=== PATIENT | female | born 1995 | race Caucasian/White ===

== ENCOUNTER 2019-08-14 16:58 | Outpatient (CLI) | payer MEDICAID ==
[2019-08-14] MEDS ORDERED: MACROBID100 MG PO (17:26)
[2019-08-14] MEDS ORDERED: PRENAVITE1 TAB PO (17:26)
[2019-08-14] MEDS ORDERED: FERROUS SULFAT325 MG PO (17:27)
[2019-08-14 17:30] LABS: BASOPHILS 0.1 % (0-2); EOSINOPHILS 0.2 % (0-7); HEMATOCRIT 23.8 % (36.0-48.0); IMMATURE GRANULOCYTES 0.4 % (0-5); LYMPHOCYTES 7.6 % (15-50); MCHC 29.4 g/dL (31.0-37.0); MONOCYTES 4.2 % (2-11); NEUTROPHILS 87.5 % (40-80); PLATELET COUNT 189 10x3/uL (130-400); RBC 3.66 10x6/uL (4.00-5.40); RDW 18.7 % (11.5-14.5); WBC 13.2 10x3/uL (4.8-10.8)
[2019-08-14 17:38] LABS: MCH 19.1 pg (26.0-34.0)
[2019-08-14 17:43] LABS: ALBUMIN 2.4 g/dL (3.4-5.0); ALKALINE PHOSPHATASE 110 U/L (46-116); ALT (SGPT) 13 U/L (10-68); BILIRUBIN - DIRECT 0.17 mg/dL (0.00-0.30); BILIRUBIN - INDIRECT 0.35 mg/dL (0.00-1.00); BILIRUBIN - TOTAL 0.52 mg/dL (0.2-1.3); CALC OSMOLALITY 267 mosm/kg (275-300); CALCIUM 8.2 mg/dL (8.5-10.1); CARBON DIOXIDE 21.3 mmol/L (21.0-32.0); CHLORIDE - SERUM 102 mmol/L (98-107); CREATININE - SERUM 0.4 mg/dL (0.6-1.3); GLUCOSE 87 mg/dL (74-106); POTASSIUM - SERUM 3.7 mmol/L (3.5-5.1); PROTEIN - SERUM 6.6 g/dL (6.4-8.2); SODIUM 136 mmol/L (136-145); UREA NITROGEN 5 mg/dL (7-18); URIC ACID 2.9 mg/dL (2.6-7.2); eGFR NON AFRICAN AMERICAN > 90 mL/min (90-120)
[2019-08-14 17:45] LABS: APPEARANCE CLEAR (CLEAR); BILIRUBIN NEGATIVE (NEGATIVE); COLOR YELLOW (YELLOW); GLUCOSE NEGATIVE (NEGATIVE); KETONE NEGATIVE (NEGATIVE); NITRITE NEGATIVE (NEGATIVE); PROTEIN NEGATIVE (NEGATIVE); UROBILINOGEN NORMAL (NORMAL)
[2019-08-14 17:46] LABS: EPITHELIAL CELLS 0-5 /hpf (0-5); RED CELLS - URINE 0-5 /hpf (0-5)
[2019-08-14 17:47] LABS: BACTERIA MODERATE /hpf (NEGATIVE); YEAST >1+ WITH HYPHAE /hpf (NONE SEEN)
[2019-08-15 06:59] LABS: BASOPHILS 0.2 % (0-2); EOSINOPHILS 1.2 % (0-7); HEMATOCRIT 28.2 % (36.0-48.0); IMMATURE GRANULOCYTES 0.6 % (0-5); LYMPHOCYTES 23.9 % (15-50); MCH 21.1 pg (26.0-34.0); MCHC 30.5 g/dL (31.0-37.0); MONOCYTES 8.5 % (2-11); NEUTROPHILS 65.6 % (40-80); PLATELET COUNT 184 10x3/uL (130-400); RBC 4.07 10x6/uL (4.00-5.40); RDW 21.8 % (11.5-14.5); WBC 10.1 10x3/uL (4.8-10.8)
[2019-08-15 07:01] LABS: HEMOGLOBIN 8.6 g/dL (12-16); MCV 69.3 fL (80.0-100.0)
== END 2019-08-15 08:30 | disposition home or self-care (01) ==
LOC: D.LDO 16:58 → D.LD 18:41 → D.LDO 08-15 08:30
PROVIDERS: Obstetrics & Gynecology; ATTEND Student in an Organized Health Care Education/Training Program
DX: O26.893 Other specified pregnancy related conditions, third trimester (principal); Z3A.34 34 weeks gestation of pregnancy

== ENCOUNTER → 2019-08-23 12:21 | Outpatient (CLI) | payer MEDICAID ==
[~2019-08-23 12:21] MED LIST: FERROUS SULFAT325 MG PO; MACROBID100 MG PO; PRENAVITE1 TAB PO
== END | disposition home or self-care (01) ==
LOC: D.LDO 12:21
PROVIDERS: ATTEND Student in an Organized Health Care Education/Training Program
DX: O26.90 Pregnancy related conditions, unspecified, unspecified trimester (principal)

== ENCOUNTER 2019-09-12 23:48 | Inpatient (IN) | payer MEDICAID ==
[~2019-09-12] VITALS: Ht 139.7 cm; Wt 70.3 kg
[2019-09-13 00:26] LABS: HEMATOCRIT 36.9 % (36.0-48.0); HEMOGLOBIN 11.3 g/dL (12-16); MCH 25.3 pg (26.0-34.0); MCHC 30.6 g/dL (31.0-37.0); MCV 82.7 fL (80.0-100.0); PLATELET COUNT 171 10x3/uL (130-400); RBC 4.46 10x6/uL (4.00-5.40); WBC 9.2 10x3/uL (4.8-10.8)
[2019-09-13] MEDS ORDERED: KEFLEX250 MG PO (01:35)
[2019-09-13 01:36] VITALS: BP 137/76; Ht 139.7 cm; Wt 70.3 kg
[2019-09-13 01:45] LABS: APPEARANCE CLOUDY (CLEAR); BILIRUBIN NEGATIVE (NEGATIVE); COLOR YELLOW (YELLOW); GLUCOSE NEGATIVE (NEGATIVE); KETONE SMALL mg/dL (NEGATIVE); NITRITE NEGATIVE (NEGATIVE); PROTEIN 2+ mg/dL (NEGATIVE); SPECIFIC GRAVITY 1.015 (1.005-1.020); UROBILINOGEN NORMAL (NORMAL)
[2019-09-13 01:47] LABS: BACTERIA MANY /hpf (NEGATIVE); EPITHELIAL CELLS 0-5 /hpf (0-5); RED CELLS - URINE 0-5 /hpf (0-5); WHITE CELLS - URINE 25-50 /hpf (NEGATIVE)
--- NOTE | 2019-09-13 03:43 | NUR ---
SANDWICH TRAY SERVED TO PT. SITTING UP IN BED.
--- NOTE | 2019-09-13 04:14 | NUR ---
ROCEPHINE INFUSION COMPLETED AND LINE FLUSHED WITH NORMAL SALINE. FUNDUS FIRM U/2 AND MIDLINE. LOCHIA RUBRA SCANT. PT. LOOKING ON PHONE. STATES SHE IS NOT SLEEPY.
--- NOTE | 2019-09-13 04:19 | NUR ---
LYING ON LT SIDE AND SUPPORTED WITH PILLOW.
--- NOTE | 2019-09-13 05:53 | NUR ---
SITTING CROSS LEGGED IN BED HOLDING INFANT. INFORMED THAT NBN NURSE WAS ON HER WAY TO HELP HER WITH . PT. STATES UNDERSTANDING.
--- NOTE | 2019-09-13 06:21 | NUR ---
HAS INFANT LYING ON BED AND SHE AND FOB LOOKING AT . INFANT ASLEEP AT PRESENT.
--- NOTE | 2019-09-13 07:30 | NUR ---
PT RESTING WITH EYES CLOSED AND RESP EVEN, NO DISTRESS NOTED.
--- NOTE | 2019-09-13 09:30 | NUR ---
ASSESSMENT COMPLETED CHARTED. FUNDUS FIRM AT U/1, MIDLINE WITH LIGHT BLEEDING, NO CLOTS WITH MASSAGE. IV SALINE LOCKED TO LEFT WRIST AREA, NO REDDNESS, SWELLING OR COMPLAINT OF TENDERNESS. RATES PAIN AT 3/10 AND UNDERSTANDING PAIN MED IS AVAILABLE IF NEEDED. SIDE RAILS UP X 2 WITH CALL LIGHT IN REACH AND SIG OTHER PRESENT.
[2019-09-13 10:00] VITALS: BP 135/89
--- NOTE | 2019-09-13 10:12 | NUR ---
DILEEP GIVEN SCANNED TO EMAR PT RATES CRAMPING AT 5/10. ALSO PROVIDED HER WITH REQUESTED SELF CATH AND CLEANING CLOTHS. PT WILL CALL IF ASSISTANCE IS NEEDED.
--- NOTE | 2019-09-13 10:45 | NUR ---
CALLED TO ROOM, PT STATES THAT SHE NEEDS ASSISTANCE WITH CATH DUE TO DISCOMFORT POST DELIVERY. THIS RN AND VESNA RN TO BEDSIDE. PT POSITIONED TO HER BACK WITH HEAD OF BED LOWERED, FOOT OF BED LOWERED AND PT MOVED TO EDGE. AREA CLEANED PER PROTOCOL, FEMALE SELF CATH WHICH IS LATEX FREE IS USED, IMMEDIATE RETURN OF CLOUDY CONCENTRATED URINE, TOTAL OF 300ML. ANTONY CARE PER NURSE WITH PAD AND MESH BRIEFS PUT ON AND GOWN CHANGED. BEDDING ALSO CHANGED AT THIS TIME. PT RATES PAIN AT 2/10, INFANT IN CRIB AT BEDSIDE WITH SIG OTHER PRESENT.
[2019-09-13 10:58] LABS: BASOPHILS 0.1 % (0-2); EOSINOPHILS 0.5 % (0-7); HEMATOCRIT 34.4 % (36.0-48.0); HEMOGLOBIN 10.8 g/dL (12-16); IMMATURE GRANULOCYTES 0.3 % (0-5); LYMPHOCYTES 17.9 % (15-50); MCH 26.2 pg (26.0-34.0); MCHC 31.4 g/dL (31.0-37.0); MCV 83.5 fL (80.0-100.0); MONOCYTES 7.7 % (2-11); NEUTROPHILS 73.5 % (40-80); PLATELET COUNT 137 10x3/uL (130-400); RBC 4.12 10x6/uL (4.00-5.40)
[2019-09-13 11:45] LABS: WBC 11.8 10x3/uL (4.8-10.8)
--- NOTE | 2019-09-13 12:30 | NUR ---
PT RESTING WITH INFANT IN CRIB AT BEDSIDE. DENIES PAIN OR DISCOMFORT AND HAS NO NEEDS AT THIS TIME.
--- NOTE | 2019-09-13 13:45 | NUR ---
TRANSFERRED TO ROOM 1273. ORIENT TO ROOM WITHOUT QUESTIONS. LARGE CUP OF ICE WITH LEMON UGASHIK SODA REQEUSTED. DENIES PAIN OR DISCOMFORT AT THIS TIME.
--- NOTE | 2019-09-13 14:18 | NUR ---
IN AND OUT CATH PER PT REQUEST, 250ML DARK CONCENTRATED URINE NOTED. ANTONY CARE PER RN WITH PAD AND MESH BRIEFS CHANGED. PINK UNDERPAD AND CHUX CHANGED AT THIS TIME ALSO. RATES PAIN AT 2/10 BUT DENIES NEED FOR MEDS. CALL LIGHT IN REACH, SIDE RAILS UP X 2. FAMILY AT BEDSIDE WITH INFANT.
--- NOTE | 2019-09-13 15:15 | NUR ---
SALINE LOCKED FLUSHED EASILY WITH 5ML NS. ROCEPHIN 1 GRAM INFUSING PER ORDERS.
[2019-09-13 16:13] VITALS: BP 127/71
--- NOTE | 2019-09-13 16:45 | NUR ---
IVPB COMPLETED. IV FLUSHED EASILY WITH 10ML NS AND SALINE LOCKED. PT DENIES PAIN OR DISCOMFORT AND HAS NO NEEDS AT THIS TIME. CALL LIGHT IN REACH.
--- NOTE | 2019-09-13 18:00 | NUR ---
DIETARY MESSAGE THRU [facility] PER PT REQUEST FOR ROOT BEER. CONTINUE TO DENY PAIN. IN CRIB AT BEDSIDE AND FAMILY/FRIENDS ALSO PRESENT. CALL LIGHT IN REACH.
--- NOTE | 2019-09-13 19:16 | NUR ---
PT. SITTING UP IN BED LYING OVER PILLOW ASLEEP. RESPIRATIONS UNLABORED. INFANT IN OPEN CRIB AT BEDSIDE. FOB LYING ON SOFA WITH LIGHTS DIMMED LOOKING AT PHONE AND WATCHING TV. INFORMED FOB THAT THIS NURSE WOULD RETURN AT A LATER TIME TO GET ASSESSMENT AFTER PT. AWAKENS.
--- NOTE | 2019-09-13 20:05 | NUR ---
IN SHOWER AT PRESENT. FOB IN ROOM WITH INFANT. INFANT IN OPEN CRIB.
[2019-09-13 20:24] VITALS: BP 145/88
--- NOTE | 2019-09-13 20:24 | NUR ---
PT. OUT OF SHOWER AND BACK TO BED. SITTING STRAIGHT UP IN BED. DENIES ANY PAIN AT THIS TIME. STATES SHE HAS MILD CRAMPING WITH . BREATH SOUNDS CLEAR AND BOWEL SOUNDS AUDIBLE. PT. REPORTS RECENT BOWEL MOVEMENT. PULSE IRREGULAR. DENIES ANY PAIN IN LOWER EXTREMITIES. PT. DESIRING IV DISCONTINUED. STATES ARM SLIGHTLY SORE AT IV SITE. NO REDNESS NOR EDEMA NOTED. INFORMED PT. THAT IV WOULD MORE THAN LIKELY NEED TO BE RESTARTED IF IT WERE DISCONTINUED. STATES IT REALLY ISN'T THAT PAINFUL AND PREFERS NOT TO HAVE TO RESTART. INFORMED PT. THAT DAYSHIFT STATED THAT IV ASPIRATED WITH GOOD BLOOD RETURN AND ALSO FLUSHED WITH EASE. INFORMED NEXT ANTIBIOTIC TIME WOULD BE AROUND 3:30 SO WOULD CHECK AGAIN AT THAT TIME. STATES UNDERSTANDING. DISCUSSED WITH PT. CONTINUING VITAMINS DIRECTED. INFORMED OF SITUATIONS THAT WOULD NEED TO BE REPORTED SUCH TEMP. ELEVATED GREATER THAN 100.5 AND VAGINAL BLEEDING WHERE SHE WAS SOAKING A PAD, NOT PANTY LINER, EVERY 30 MINUTES. STATES UNDERSTANDING TO ALL.FUNDUS FIRM AND MIDLINE AT U/2.
[2019-09-13 22:30] VITALS: BP 119/79
--- NOTE | 2019-09-13 22:30 | NUR ---
LYING ON BACK WITH LYING ON PT'S CHEST. LIGHTS DIMMED. FOB ASLEEP ON SOFA. TV PLAYING. DENIES ANY NEEDS.
--- NOTE | 2019-09-13 23:55 | NUR ---
PT.TURNED TOWARD IN OPEN CRIB ASLEEP. RESPIRATIONS UNLABORED. LIGHTS IN ROOM DIMMED. FOB SLEEPING ON SOFA.
--- NOTE | 2019-09-14 01:19 | NUR ---
LYING ON BACK WITH EYES CLOSED. RESPIRATIONS UNLABORED. INFANT IN OPEN CRIB AT BEDSIDE. FOB ASLEEP ON SOFA.
--- NOTE | 2019-09-14 02:25 | NUR ---
INFANT LYING ON PILLOW IN BED. PT. LEANING OVER PILLOW . ASKED PT. IF SHE HAD FED AND SHE REPLIED THAT SHE HAD. ASKED IF SHE DESIRED TO GO TO N SO SHE COULD SLEEP. PT. STATES "NO HE IS FINE." SIDE RAILS UP X 2 AND CALL LIGHT WITHIN REACH.
--- NOTE | 2019-09-14 03:00 | NUR ---
IV SITE IN LT FOREARM WITH BULGE NOTED OVER IV SITE. PT. STATES SITE IS MORE PAINFUL. ATTEMPTED TO ASPIRATE SALINE LOCK WITHOUT BLOOD RETURN. IV SALINE LOCK DISCONTINUED WITH INTACT CATH. TIP NOTED. PT. STATES THAT SHE PREFERS NOT TO HAVE IV RESTARTED AND STATES THAT DR. ELLIS TOLD HER THAT SHE WOULD BE SENT HOME WITH ORAL ANTIBIOTICS SO MAYBE SHE COULD START THOSE EARLY. INFORMED PT. THAT MD WOULD HAVE TO BE NOTIFIED OF HER REQUEST. CURRENTLY HOLDING INFANT, WHICH IS SLEEPING , ON HER CHEST.
--- NOTE | 2019-09-14 03:13 | NUR ---
DR. NIKOLAS BRAN.
--- NOTE | 2019-09-14 03:18 | NUR ---
DR. CONNOR CALLED UNIT AND INFORMED THAT PT. DOES NOT WANT IV RESTARTED AND REQUESTED TO START ORAL MEDS. INFORMED MD OF PT. ALLERGIES AND FACT CULTURE IS PENDING IN LAB OF URINE. MD STATES HE WILL CALL THIS NURSE BACK.
--- NOTE | 2019-09-14 03:55 | NUR ---
FITNESS ASSISTANT INFORMED OF NEED FOR ANTIBIOTIC FOR PT.
--- NOTE | 2019-09-14 04:41 | NUR ---
CONTINUES TO HOLD INFANT. WATCHING TV. ANTIBIOTIC GIVEN ORDERED. ICE WATER PROVIDED TO PT.
[2019-09-14 06:05] LABS: BASOPHILS 0.2 % (0-2); EOSINOPHILS 1.2 % (0-7); HEMATOCRIT 34.1 % (36.0-48.0); HEMOGLOBIN 10.3 g/dL (12-16); IMMATURE GRANULOCYTES 0.3 % (0-5); LYMPHOCYTES 23.2 % (15-50); MCH 25.6 pg (26.0-34.0); MCHC 30.2 g/dL (31.0-37.0); MCV 84.8 fL (80.0-100.0); NEUTROPHILS 69.1 % (40-80); PLATELET COUNT 149 10x3/uL (130-400); RBC 4.02 10x6/uL (4.00-5.40); WBC 12.1 10x3/uL (4.8-10.8)
[2019-09-14 06:09] LABS: RAPID PLASMA REAGIN Non Reactive (Non Reactive)
--- NOTE | 2019-09-14 06:15 | NUR ---
LYING ON BACK WITH HOB AT 30 DEGREES. IN OPEN CRIB AT BEDSIDE. PT. DENIES ANY NEEDS.
[2019-09-14 07:48] VITALS: BP 124/84
--- NOTE | 2019-09-14 07:50 | NUR ---
PT AWAKE, DROWSY, MINIMALLY RESPONSIVE, STATES "I DIDN'T SLEEP LAST NIGHT" ON ROUNDS, DENIES PAIN OR NEEDS AT THIS TIME, SEE ASSESSMENT FOR FURTHER INFORMATION, BREAKFAST TRAY PROVIDED, SIGNIFICANT OTHER AT BS, CALL LIGHT IN EASY REACH, BED IN LOW POSITION, BED BRAKES LOCKED, SIDE RAILS UP X2. WILL MONITOR.
--- NOTE | 2019-09-14 08:30 | NUR ---
ROUNDS COMPLETED, PT RESTING WITH EYES CLOSED, RESP EVEN AND UNLABORED, LEFT LATERAL POSITION, CALL LIGHT IN EASY REACH.
--- NOTE | 2019-09-14 09:00 | NUR ---
C/O STINGING NIPPLES, DISCUSSED RELIEF MEASURES. COOL TEA BAG GIVEN TO PLACE ON NIPPLES, ALSO LANOLIN AND BREAST SHIELD GIVEN. ALSO C/O ACHING OF LEFT THIGH, ASKED ABOUT USING ICE OR HEATING PAD. USING HEATING PAD AT [facility]. WILL CHECK WITH MD REGARDING K-PAD. POSSIBLE DC HOME TODAY.
--- NOTE | 2019-09-14 09:25 | NUR ---
ROUNDS COMPLETED, PT RESTING WITH EYES CLOSED, NAD NOTED. WILL MONITOR.
--- NOTE | 2019-09-14 10:50 | NUR ---
ROUNDS COMPLETED, DR CORRALES TO ROOM TO SEE PT AND DISCUSS DISCHARGE AND FOLLOW-UP RECOMMENDATIONS, PT STATES UNDERSTANDING, NO NEEDS VOICED AT THIS TIME.
--- NOTE | 2019-09-14 11:50 | NUR ---
rounds completed, friends/family to room, pt [id number], smiling, denies c/o or concerns at this time, will continue to monitor for change in condition.
--- NOTE | 2019-09-14 11:57 | NUR ---
DR CONNOR OUT OF SURGERY, NOTIFIED OF PT C/O THIGH ACHING. HE WILL ASSESS WHEN MAKING ROUNDS.
--- NOTE | 2019-09-14 12:30 | NUR ---
dr chan making rounds -order received for cbc, notified lab of pending lab order for draw.
[2019-09-14 12:52] LABS: BASOPHILS 0.2 % (0-2); EOSINOPHILS 1.1 % (0-7); HEMATOCRIT 35.3 % (36.0-48.0); HEMOGLOBIN 10.8 g/dL (12-16); IMMATURE GRANULOCYTES 0.2 % (0-5); LYMPHOCYTES 15.4 % (15-50); MCHC 30.6 g/dL (31.0-37.0); MCV 84.9 fL (80.0-100.0); MONOCYTES 4.7 % (2-11); NEUTROPHILS 78.4 % (40-80); PLATELET COUNT 157 10x3/uL (130-400); RBC 4.16 10x6/uL (4.00-5.40); WBC 12.5 10x3/uL (4.8-10.8)
--- NOTE | 2019-09-14 13:24 | NUR ---
dr chan notified of wbc and pt heart rate 118-120. pt states heart rate runs 110s normally, orders received okay to discharge home today but should follow up with dr nieves next week in the office, report any heart rate greater than 120, temperature greater than 100.5. ua c&s verified in process showing gram negative rods. orders verified using torb.
--- NOTE | 2019-09-14 13:36 | NUR ---
reviewed discharge instructions with patient and significant other. handouts provided for review at home, questions answered, pt states understanding of all information, prescription provided for fill after discharge.
--- NOTE | 2019-09-14 13:50 | NUR ---
INFANT SECURED IN CARSEAT AND BOTH PATIENT AND DISCHARGED TO HOME WITH ALL PERSONAL BELONGINGS, NAD NOTED. PATIENT STATES UNDERSTANDING THAT NEEDS TO CALL MONDAY MORNING FOR APPOINTMENT BOTH NEXT WEEK IN CLINIC AND 4-6 WEEKS .
== END 2019-09-14 13:50 | disposition home or self-care (01) | DRG 807 ==
LOC: D.LDO 23:48 → D.LD 23:49 → D.LDO 23:52 → D.LD 09-13 14:23
PROVIDERS: Obstetrics & Gynecology; ADMIT Student in an Organized Health Care Education/Training Program; ATTEND Student in an Organized Health Care Education/Training Program
PROC: 10E0XZZ Delivery of Products of Conception, External Approach (ICD-10-PCS; principal; 2019-09-13)
PROC: 10907ZC Drainage of Amniotic Fluid, Therapeutic from Products of Conception, Via Natural or Artificial Opening (ICD-10-PCS; 2019-09-13)
DX: O75.89 Other specified complications of labor and delivery (principal); Z37.0 Single live birth; Z3A.38 38 weeks gestation of pregnancy; Q05.9 Spina bifida, unspecified; Z87.891 Personal history of nicotine dependence; O69.81X0 Labor and delivery complicated by cord around neck, without compression, not applicable or unspecified; O71.82 Other specified trauma to perineum and vulva; O86.20 Urinary tract infection following delivery, unspecified; O90.89 Other complications of the puerperium, not elsewhere classified; R00.0 Tachycardia, unspecified